=== PATIENT | male | born 1995 | race Caucasian/White ===

== ENCOUNTER 2023-12-03 05:16 | Emergency (ER) | payer OTHER, SELFPAY ==
[2023-12-03 05:29] VITALS: BP 135/84; PULSE 97; RESP 18; O2SAT 98; BMI 29.7
--- NOTE | 2023-12-03 05:35 | XRR_ITS ---
PROCEDURE INFORMATION: Exam: XR Right Hand Exam date and time: 12/03/2023 5:37 AM Age: 28 years old Clinical indication: Injury or trauma; Crushing; Right; Middle finger; Patient HX: Patient sustained crush injury to distal phalange of third digit. ; Additional info: Smashed finger at work TECHNIQUE: Imaging protocol: Radiologic exam of the right hand. Views: 3 or more views. COMPARISON: No relevant prior studies available. FINDINGS: Bones/joints: Moderately displaced mildly comminuted fracture through the bony ungual tuft of the right middle finger. No other osseous or joint abnormality.. Soft tissues: Normal. XR/XR hand RT min 3V* [id number] IMPRESSION: Fracture of the distal phalanx.
--- NOTE | 2023-12-03 05:36 | ED_ITS ---
Documented by User: Peter Joseph DO 12/03/23 05:37 HPI - Extremity Problem General: Chief complaint: Extremity Injury, Upper Stated complaint: right hand injury Time Seen by Provider: 12/03/23 05:31 History of Present Illness: Patient presents to the ER after smashing his finger between a trailer and a ramp at work. There is a laceration/abrasion to the tip of the finger. Patient's last tetanus shot was 2016. Patient has good range of motion bleeding is controlled patient is neurovascularly intact. Related Data Previous Rx's Medication Instructions Recorded hydrocodone 5 mg-acetaminophen 325 1 tab PO Q6H PRN pain #20 tabs 12/03/23 mg tablet mupirocin 2 % topical ointment 1 applic topical DAILY #22 grams 12/03/23 Allergies Allergy/AdvReac Type Severity Reaction Status Date / Time codeine Allergy Unknown Verified 12/03/23 05:50 Review of Systems General: Reports: 10 or more systems reviewed and unremarkable except in HPI and below Physical Exam Const: COMMON NORMALS: no acute distress, average body habitus, patient oriented x3, no limitations, healthy appearing, alert and well nourished HENMT: COMMON NORMALS: normocephalic, atraumatic, hearing grossly normal bilaterally, external ears normal, Normal external nose present and moist oral mucous membranes HEAD & SCALP: normocephalic and atraumatic NOSE: Normal external nose present EXTERNAL EAR: Yes external ears normal Neck/C-Spine: COMMON NORMALS: no JVD Chest: COMMONS NORMALS: normal inspection of the chest and normal palpation of entire chest wall Resp: COMMON NORMALS: normal respiratory effort, No retractions, No use of accessory muscles and clear to auscultation bilaterally AUSCULTATION: clear to auscultation bilaterally Cardio: COMMON NORMALS: no JVD, regular rate, regular rhythm, S1 normal heart sound present, S2 normal heart sound present, No gallops present (Cardio), No clicks present (Cardio), No murmurs present (Cardio) and No rub (Cardio) RATE: regular rate RHYTHM: regular rhythm HEART SOUNDS: S1 normal heart sound present and S2 normal heart sound present Extremity: NARRATIVE EXTREMITY EXAM: Abrasion type laceration to the distal tip of the right middle finger. He is controlled at this time. Patient is neurovascularly intact. Neuro: COMMON NORMALS: patient oriented x3 SENSORIUM/ORIENTATION: Yes alert Course Vital Signs: Vital signs: Vital Signs Pulse Rate 89 12/03/23 06:32 Respiratory Rate 15 12/03/23 06:32 Blood Pressure 131/82 12/03/23 06:32 Pulse Oximetry 98 12/03/23 06:32 Oxygen Delivery Me thod Room Air 12/03/23 06:32 MDM - Extremity (Nontraumatic) Medical Records I reviewed the patient's medical records. Lab Data I reviewed the patient's lab results. Radiology Impressions Hand X-Ray 12/03/23 05:35 IMPRESSION: Fracture of the distal phalanx. All radiology interpretation(s) finalized by discharge Discharge Plan Discharge Patient Disposition: Home Clinical Impression: Closed fracture of tuft of distal phalanx of finger Condition: Stable Prescriptions: New hydrocodone-acetaminophen 5-325 mg tablet 1 tab PO Q6H PRN (Reason: pain) Qty: 20 0RF mupirocin 2 % ointment 1 applic topical DAILY Qty: 22 0RF Discharge Orders: Discharge ED (Routine); Ordered 12/03/23 Ordered By: Jeremy Arias Referrals: Jerald Beatty [Primary Care Provider] - Patient Instructions: Opioid Safety, Pain Management Activity Restrictions/Additional Instructions: Thank you for choosing [facility] for your healthcare needs today. It is very important that you follow up as instructed or that you return to the Emergency Department should you have concerns or if your condition changes or worsens in any way. You are seen today for a crush injury to your right third finger. There was a tuft fragment with mild displacement. There is a significant amount of swelling at the finger. At this point is not amenable to suturing. Recommend a finger splint to protect the fingertip and allowing the tuft fracture to heal. Apply topical antibiotic ointment to the wound once daily. You can wash the wound under running water pat dry and apply the antibiotic ointment. Case management make arrangements for you to follow-up with orthopedics Sign Out Sign Out Data: Patient Sign Out occurred on 12/03/23 at 06:12. Patient's care was discussed, and care was transferred from Peter Joseph DO to Jeremy Arias DO. Coding Level of Care Code ED Digital X Ray Service Engineer for [employer] Documented by User: Jeremy Arias DO 12/03/23 11:26 HPI - Extremity Problem General: Chief complaint: Extremity Injury, Upper Stated complaint: right hand injury Time Seen by Provider: 12/03/23 05:31 Related Data Previous Rx's Medication Instructions Recorded hydrocodone 5 mg-acetaminophen 325 1 tab PO Q6H PRN pain #20 tabs 12/03/23 mg tablet mupirocin 2 % topical ointment 1 applic topical DAILY #22 grams 12/03/23 Allergies Allergy/AdvReac Type Severity Reaction Status Date / Time codeine Allergy Unknown Verified 12/03/23 05:50 Course Vital Signs: Vital signs: Vital Signs Pulse Rate 89 12/03/23 06:32 Respiratory Rate 15 12/03/23 06:32 Blood Pressure 131/82 12/03/23 06:32 Pulse Oximetry 98 12/03/23 06:32 Oxygen Delivery Me thod Room Air 12/03/23 06:32 MDM - Extremity (Nontraumatic) Medical Decision Making Distal tuft fracture. Partial avulsion of the distal part of the fingernail. No open lacerations. Some swelling at the tip. There is a little bit of displacement of the distal tuft fracture. Will place him in a finger splint discharge the patient home topical antibiotic ointment and dress wound once daily. Follow-up with primary care pain medications given he is driving through this area encouraged him follow-up with his primary care doctor soon as he is able. Lab Data Radiology Impressions Hand X-Ray 12/03/23 05:35 IMPRESSION: Fracture of the distal phalanx. Discharge Plan Discharge Patient Disposition: Home Clinical Impression: Closed fracture of tuft of distal phalanx of finger Condition: Stable Prescriptions: New hydrocodone-acetaminophen 5-325 mg tablet 1 tab PO Q6H PRN (Reason: pain) Qty: 20 0RF mupirocin 2 % ointment 1 applic topical DAILY Qty: 22 0RF Discharge Orders: Discharge ED (Routine); Ordered 12/03/23 Ordered By: Jeremy Arias Referrals: Jerald Beatty [Primary Care Provider] - Patient Instructions: Opioid Safety, Pain Management Activity Restrictions/Additional Instructions: Thank you for choosing [facility] for your healthcare needs today. It is very important that you follow up as instructed or that you return to the Emergency Department should you have concerns or if your condition changes or worsens in any way. You are seen today for a crush injury to your right third finger. There was a tuft fragment with mild displacement. There is a significant amount of swelling at the finger. At this point is not amenable to suturing. Recommend a finger splint to protect the fingertip and allowing the tuft fracture to heal. Apply topical antibiotic ointment to the wound once daily. You can wash the wound under running water pat dry and apply the antibiotic ointment. Case management make arrangements for you to follow-up with orthopedics Sign Out Sign Out Data: Patient Sign Out occurred on 12/03/23 at 06:12. Patient's care was discussed, and care was transferred from Peter Joseph DO to Jeremy Arias DO. Coding Level of Care Code ED Digital X Ray Service Engineer for Corwin Nieves
[2023-12-03] MEDS: tetanus-dipt-pertussis 0.5 mL SDV IM (06:21)
[2023-12-03 06:32] VITALS: BP 131/82; PULSE 89; RESP 15; O2SAT 98
[2023-12-03] MEDS: neomycin-poly-bacitracin oint 0.9 gm Pkt 1 APPLIC TOPICAL (06:38)
[2023-12-03] MEDS: HYDROcodone-acetaminophen 5-325 mg Tablet 1 TAB PO (06:47)
--- NOTE | 2023-12-05 11:30 | DCPLANNER ---
Message sent to Ortho for follow up- Distal tuft fracture.
== END 2023-12-03 06:55 | disposition home or self-care (01) ==
PROVIDERS: Emergency Provider Family Medicine; PCP Family Medicine
DX: S62.632A Displaced fracture of distal phalanx of right middle finger, initial encounter for closed fracture (principal); W23.0XXA Caught, crushed, jammed, or pinched between moving objects, initial encounter; Z23 Encounter for immunization
CPT/HCPCS: 73130; 90471; 90715; 99283